=== PATIENT | male | born 1980 | race Asian ===

== ENCOUNTER 2022-05-02 14:33 | Emergency (ER) | payer MEDICAID ==
[~2022-05-02] VITALS: Ht 167.6 cm; Wt 65.5 kg
[2022-05-02 14:50] VITALS: BP 141/83
[2022-05-02] MEDS ORDERED: PROPARACAINE HCL 0.5% 15 ML OPHTHALMIC SOLUTION OU ONE (16:00)
[2022-05-02] MEDS ORDERED: FLUORESCEIN SODIUM 1 MG STRIP ONE (16:02)
[2022-05-02] MEDS ORDERED: ERYT3.5O8 OU (16:53)
== END 2022-05-02 17:28 | disposition home or self-care (01) ==
LOC: EMS 14:33
DX: S05.02XA Injury of conjunctiva and corneal abrasion without foreign body, left eye, initial encounter (principal); X58.XXXA Exposure to other specified factors, initial encounter; Y93.89 Activity, other specified; Y92.89 Other specified places as the place of occurrence of the external cause; Y99.8 Other external cause status
CPT/HCPCS: 99283